=== PATIENT | female | born 1960 | race Caucasian/White ===

== ENCOUNTER 2025-03-27 16:11 | Outpatient (CLI) | payer BC, SELFPAY ==
--- NOTE | 2025-03-27 16:45 | CRLHL7_ITS ---
For Patients: As a result of the Century Cures Act, medical imaging exams and procedure reports are released immediately into your electronic medical record. You may view this report before your referring provider. If you have questions, please contact your health care provider. INDICATION: Heavy post-menopausal bleeding with cramping for 1 year. COMPARISON: None. TECHNIQUE: 2D may-scale and color Doppler images were acquired of the pelvis using a transabdominal and transvaginal approach. Transvaginal imaging performed to better visualize the endometrial stripe and ovaries. FINDINGS: Large left-sided fibroid measures 7.4 x 7.2 x 6.3 cm. Uterus measures 12.5 cm in length by 7.3 cm in AP diameter by 0.5 cm in transverse dimension. Endometrium measures 14.9 millimeters. The right ovary measures 2.6 x 1.5 x 2.0 cm in size and the left ovary is not visualized due to overlying bowel gas. The right ovary demonstrates normal arterial and venous blood flow on color Doppler analysis. There are no suspicious fluid collections within the cul-de-sac. IMPRESSION: Large left-sided fibroid measures 7.4 cm. Endometrium is thickened and measures 14.9 millimeters. Dictated by Zac Kaufman MD @ 03/28/2025 7:49:07 AM (Electronically Signed)
== END 2025-03-27 16:12 | disposition home or self-care (01) ==
LOC: US 16:11
PROVIDERS: Visit Provider Obstetrics & Gynecology
DX: N95.0 Postmenopausal bleeding (principal); D25.9 Leiomyoma of uterus, unspecified; R93.89 Abnormal findings on diagnostic imaging of other specified body structures; Z79.899 Other long term (current) drug therapy
CPT/HCPCS: 76830; 76856; 82607; 82670; 84403; 84443; 87624; 88141; 88175

== ENCOUNTER 2025-05-11 12:37 | Outpatient (CLI) | payer BC, SELFPAY | END 2025-05-11 12:38 | disposition home or self-care (01) | PROVIDERS: Visit Provider Obstetrics & Gynecology | DX: E03.9 Hypothyroidism, unspecified (principal); Z13.1 Encounter for screening for diabetes mellitus | CPT/HCPCS: 84443; 86376 ==